=== PATIENT | male | born 1940 | race Two or more races ===

== ENCOUNTER 2023-08-24 19:29 | Emergency (ER) | payer OTHER ==
[~2023-08-24] VITALS: Ht 180.3 cm; Wt 87.8 kg
[2023-08-24 22:10] VITALS: BP 148/69; PULSE 78; RESP 18; TEMP 97.8; O2SAT 96
== END 2023-08-24 22:12 | disposition home or self-care (01) ==
LOC: ER 19:29
DX: I89.0 Lymphedema, not elsewhere classified (principal); I87.2 Venous insufficiency (chronic) (peripheral); I83.93 Asymptomatic varicose veins of bilateral lower extremities
CPT/HCPCS: 93971